=== PATIENT | male | born 1955 | race Caucasian/White ===

== ENCOUNTER 2017-09-18 13:07 | Emergency (ER) | payer BC ==
[2017-09-18] MEDS ORDERED: Sodium Chloride 0.9% 1,000 ML IV ONE (13:15)
--- NOTE | 2017-09-18 13:22 | ED Physician Chart ---
ED Chief Complaint/HPI - Patient Information Date Seen:: 09/18/17 Time Seen:: 13:00 Chief Complaint:: Syncope History of Present Illness:: onset x 5 hours [employer] of syncope, near-syncope, vertigo, weakness, intermittent, dull, diffuse Headaches, nausea, and dizziness; no report of trauma, vomiting, visual or gait changes, decreased activity, paresthesias, S/T, neck pain, C/P, SOB, Abd. Pain, A/N/V/D/C, fever, chills, or urinary s/s; pt is eating and is urinating well Historian:: Patient, Family Member Review:: Nurse's Note Reviewed ED Review of Systems - Review of Systems General/Constitutional: No fever, No chills, No weight loss, No weakness, No diaphoresis, No edema, No loss of appetite Skin: No skin lesions, No rash, No bruising Head: No headache, No light-headedness Eyes: No loss of vision, No pain, No diplopia ENT: No earache, No nasal drainage, No sore throat, No tinnitus Neck: No neck pain, No swelling, No thyromegaly, No stiffness, No mass noted Cardio Vascular: No chest pain, No palpitations, No PND, No orthopnea, No edema Pulmonary: No SOB, No cough, No sputum, No wheezing GI: Nausea, No vomiting, No diarrhea, No pain, No melena, No hematochezia, No constipation, No hematemesis G/U: No dysuria, No frequency, No hematuria, No nacturia Musculoskeletal: No bone or joint pain, No back pain, No muscle pain Endocrine: No polyuria, No polydipsia Psychiatric: No prior psych history, No depression, No anxiety, No suicidal ideation, No homicidal ideation, No auditory hallucination, No visual hallucination Hematopoietic: No bruising, No lymphadenopathy Allergic/Immuno: No urticaria, No angioedema Neurological: Syncope, No focal symptoms, Weakness, No paresthesia, Headache, No seizure, Dizziness, No confusion, Vertigo ED Past Medical History - Past Medical History Obtainable: Yes Past Medical History: Dyslipidemia, Other (Hepatitis C) Family History: HTN Social History: Non Smoker, No Alcohol, No Drug Use, Surgical History: None Psychiatricy History: None Medication: Reviewed Family Medical History - Family Member Mother History Unknown: Yes ED Physical Exam - Physical Examination General/Constitutional: Awake, Well-developed, well-nourished, Alert, No distress, GCS 15, Non-toxic appearing, Ambulatory Head: Atraumatic Eyes: Lids, conjuctiva normal, PERRL, EOMI Other Eyes comments:: PERRLA; Fundi: benign; EOMs: WNL; LLL: WNL Skin: Nl inspection, No rash, No skin lesions, No ecchymosis, Well hydrated, No lymphadenopathy ENMT: External ears, nose nl, TM canals nl, Nasal exam nl, Lips, teeth, gums nl , Oropharynx nl, Tonsils nl Other ENMT comments:: TMJs: WNL Neck: Nontender, Full ROM w/o pain, No JVD, No nuchal rigidity, No bruit, No mass, No stridor Other Neck comments:: supple; no meningeal signs; no cervical tenderness; no bruits Respiratory: Nl effort/Exclusion, Clear to Auscultation, No Wheeze/Rhonchi/Rales Cardio Vascular: RRR, No murmur, gallop, rubs, NL S1 S2, Carotid/Femoral/Distal pulses equal bilaterally GI: No tenderness/rebounding/guarding, No organomegaly, No hernia, Normal BS's, Nondistended, No mass/bruits, No McBurney tenderness, Rectum exam nl Other GI comments:: no pulsatile masses; good Bowel Sounds : No CVA tenderness Extremities: No tenderness or effusion, Full ROM, normal strength in all extremities, No edema, Normal digits & nails Neuro/Psych: Alert/oriented, DTR's symmetric, Normal sensory exam, Normal motor strength, Judgement/insight normal, Mood normal, Normal gait, No focal deficits Other Neuro/Psych comments:: no focal signs Misc: Normal back, No paraspinal tenderness ED Labs/Radiology/EKG Results - Lab Results Comments:: Na+: 135; K+: 3.2 - Radiology Results Comments:: CXR: NAD; Head CAT Scan: + Intraparenchymal Hematoma Right Occipital Region ? penetration into 4th Ventricle - EKG Interpretations EKG Time:: 13:18 Rate & Rhythm: 66; NSR Comments:: non-specific st-t changes ED Septic Shock - . Is Septic Shock (SBP<90, OR Lactate>4 mmol\L) present?: No ED Reassessment (Disposition) - Reassessment Reassessment Condition:: Improved - Diagnosis Diagnosis:: Weakness; Vertigo; Dizziness; Syncope; Hyponatremia; Hypokalemia; Intraparenchymal ICH Right Occipital Brain Region - Aftercare/Follow up Instructions Aftercare/Follow-Up Instructions:: Counseled pt regarding lab results/diagnosis & need follow up, Counseled pt & family regarding lab results/diagnosis & need follow up - Patient Disposition Discharge/Transfer:: Acute Care (other hosp) Accepting Physician:: Dr. Sajan Gonzalez at [facility] Time Called:: 1729 Time Responded:: 17:30 Admitted to:: ICU Spoke to:: Dr. Sajan Gonzalez Admitting Medical Physician:: Dr. Sajan Gonzalez Condition at Disposition:: Stable, Improved (pt to be transferred via [facility] to [facility] as a direct admission to Neuro ICU)
[2017-09-18 13:27] LABS: % BASOPHILS 0.3 % (0.0-2.0); % EOSINOPHILS 0.4 % (0.0-5.0); % LYMPHOCYTES 13.6 % (20.0-50.0); % MONOCYTES 7.3 % (2.0-10.0); % NEUTROPHILS 78.4 % (40.0-80.0); HEMOGLOBIN 14.2 gm/dL (12-16); MEAN CELL VOLUME 97.2 fl (80-99); MEAN CORPUSCULAR HEMOGLOBIN 32.9 pg (26.0-30.0); MEAN CORPUSCULAR HGB CONC 33.9 pg (28.0-36.0); MEAN PLATELET VOLUME 6.8 fl; MONOCYTE ABSOLUTE 0.6 Th/cmm (0.3-1.0); PLATELET COUNT 142 Th/cmm (150-400); RED BLOOD COUNT 4.32 Mil/cmm (4.30-5.70); RED CELL DISTRIBUTION WIDTH 13.4 % (11.5-20.0); WHITE BLOOD COUNT 7.6 Th/cmm (4.8-10.8)
[2017-09-18 13:39] LABS: INR 1.16 (0.5-1.4); PROTHROMBIN TIME (TEST) 12.2 SECONDS (9.5-11.5)
[2017-09-18 13:44] LABS: ALB/GLOB RATIO 1.1 (1.0-1.8); ALBUMIN 3.7 gm/dL (4.2-5.5); AMYLASE SERUM 59 U/L (29-103); ANION GAP 16.9 (7.0-16.0); BILIRUBIN,TOTAL 1.9 mg/dL (0.3-1.0); CALCIUM SERUM 9.3 mg/dL (8.6-10.3); CARBON DIOXIDE 18.3 mEq/L (21.0-31.0); CHLORIDE 103 mEq/L (98-107); CHOLESTEROL 127 mg/dL (<200); CREATININE - SERUM 0.8 mg/dL (0.7-1.3); GFR AFRICAN-AMERICAN > 60.0 ml/min (>90); GFR NON AFRICAN-AMERICAN > 60.0 ml/min; GLUCOSE 120 mg/dL (70-105); HDL -HIGH DENSITY LIPOPROTEIN 61 mg/dL (23-92); LIPASE 28 U/L (11-82); POTASSIUM SERUM 3.2 mEq/L (3.5-5.1); SGOT 31 U/L (13-39); SGPT/ALT 20 U/L (7-52); SODIUM SERUM 135 mEq/L (136-145); TRIGLYCERIDES 56 mg/dL (<150)
[2017-09-18 13:47] LABS: CREATININE KINASE 103 U/L (30-223)
[2017-09-18 14:05] LABS: ALKALINE PHOSPHATASE 86 U/L (34-104); BUN - UREA NITROGEN 15 mg/dL (7-25)
--- NOTE | 2017-09-18 14:12 | Diagnostic Imaging Report ---
CHEST X-RAY: AP view INDICATION: pain COMPARISON: None FINDINGS: Increased right basal lung markings are noted. There is no focal consolidation or pleural effusions The heart is normal in size. The osseous structures demonstrate no acute abnormalities. IMPRESSION: Increased right basal lung markings likely due to atelectasis. No focal consolidation identified.
[2017-09-18] MEDS ORDERED: Potassium Chloride 20 mEq ER Tab PO ONE ×3 (14:36→15:21)
--- NOTE | 2017-09-19 09:46 | Diagnostic Imaging Report ---
Exam: CT examination of brain HISTORY: Dizziness. Total DLP equals 628 CTDI equals 32.5. Findings: Multiple contiguous thin section of the brain were obtained from the base of skull to the vertex without the administration of contrast material, no prior studies available comparison. The study demonstrates a large intraparenchymal hematoma in the right occipital area extending into the right cerebellar hemisphere, measuring approximately 6 cm in diameter. Small subarachnoid blood collection cannot be excluded. Whether there is a penetration hematoma and the fourth ventricles are clear. There is no evidence of hydrocephalus. There is no evidence of midline shift. The bony calvarium is intact. The paranasal sinuses are well aerated. IMPRESSION: Large 6 cm intraparenchymal hematoma in the right occipital region extending into the right cerebellar hemisphere and possibly in the fourth ventricle. The emergency room was notified of findings at 6:00 PM.
== END 2017-09-18 18:30 | disposition short-term general hospital (02) ==
LOC: ER 13:07
DX: E87.1 Hypo-osmolality and hyponatremia (principal); E87.6 Hypokalemia; R55 Syncope and collapse; R42 Dizziness and giddiness; R53.1 Weakness; E78.5 Hyperlipidemia, unspecified
CPT/HCPCS: 99285; 96361; 96374; 93005; 71045; 70450; 84484; 83880; 36415; 85025; 85610; 82150; 82550; 83690; 80053; 80061; J2405; 94760; J7030